=== PATIENT | female | born 1995 | race Two or more races ===

== ENCOUNTER 2024-02-17 23:48 | Observation (INO) | payer MEDICAID, SELFPAY ==
[2024-02-17 23:58] VITALS: BP 116/63; PULSE 85
[2024-02-18 00:05] VITALS: BMI 32.5
--- NOTE | 2024-02-18 00:51 | PC.NURSE ---
It's not quite time for your baby yet... Written and verbal discharge instructions given regarding Ursodial, labor precautions, kick count, increase hydration, healthy diet, come back to labor and delivery if your water bag breaks, you have contractions that are more than 6 in one hour, bleeding, if you are not feeling your baby move a normal amount of movement which are 10 movements in 2 hours. Stay hydrated and fuel your body. syrup blender your Ursodial in the morning. You are to take one capsule twice per day for your itching. There are two refills. You are to follow up in Dr Davidson's office on Thursday. Come any time you feel it is necessary.
== END 2024-02-18 00:46 | disposition home or self-care (01) ==
PROVIDERS: Admitting Provider Specialist; Visit Provider Specialist
DX: O47.03 False labor before 37 completed weeks of gestation, third trimester (principal); O99.713 Diseases of the skin and subcutaneous tissue complicating pregnancy, third trimester; L29.9 Pruritus, unspecified; Z3A.34 34 weeks gestation of pregnancy
CPT/HCPCS: 59899

== ENCOUNTER 2024-02-24 19:29 | Observation (INO) | payer MEDICAID, SELFPAY ==
[2024-02-24 19:44] VITALS: BMI 32.8
== END 2024-02-24 20:13 | disposition home or self-care (01) ==
PROVIDERS: Admitting Provider Specialist; Visit Provider Specialist
DX: O26.893 Other specified pregnancy related conditions, third trimester (principal); R10.9 Unspecified abdominal pain; Z3A.35 35 weeks gestation of pregnancy
CPT/HCPCS: 59899

== ENCOUNTER 2024-03-13 21:39 | Observation (INO) | payer MEDICAID, SELFPAY ==
[2024-03-13] VITALS (15 sets, daily range): BP systolic 122; BP diastolic 71; PULSE 71–87; O2SAT 96–98; BMI 34.9
== END 2024-03-13 23:10 | disposition home or self-care (01) ==
PROVIDERS: Admitting Provider Specialist; PCP Nurse Practitioner Family; Visit Provider Specialist
DX: O26.893 Other specified pregnancy related conditions, third trimester (principal); R10.2 Pelvic and perineal pain; Z3A.38 38 weeks gestation of pregnancy
CPT/HCPCS: 59025; 59899; G0378

== ENCOUNTER 2024-03-21 04:31 | Inpatient (IN) | payer MEDICAID, SELFPAY ==
--- NOTE | 2024-03-18 07:28 | ESHP_ITS ---
RE: KENDRA POTTER : 1995 DATE OF ADMISSION: 03/21/2024 HISTORY OF PRESENT ILLNESS: This is a 28-year-old G3, P1-0-1-1 with a due date of 03/26/2024 with intrauterine at 39 weeks and 2 days who presents for repeat delivery. She has occasional contractions. She denies any leaking or bleeding. She reports normal movement. She has had nausea and vomiting and loose stools but no fever. ALLERGIES: AMOXICILLIN. MEDICATIONS: 1. multivitamin 1 tablet p.o. daily. 2. Ferrous sulfate 325 mg 1 tablet p.o. daily. 3. Omeprazole 40 mg 1 tablet p.o. daily. PAST MEDICAL HISTORY: Iron deficiency anemia, gastroesophageal reflux disease, migraine headaches, dermoid cyst of right ovary, appendicitis, cholestasis of in 2018. FAMILY HISTORY: Diabetes. OBSTETRIC HISTORY: 2017, 37 weeks delivery, 6 pounds 6 ounce male, complicated by cholestasis. 05/2023, 5 weeks spontaneous AB, no D and C. PAST SURGICAL HISTORY: delivery in 2017, appendectomy, right ovarian cystectomy. REVIEW OF SYSTEMS: She denies any headache, change in vision or right upper quadrant pain. She denies any chest pain, palpitations, shortness of breath or lower extremity pain. PHYSICAL EXAMINATION: VITAL SIGNS: Blood pressure is 110/70, heart rate 88, respirations 18, temperature 98.6, weight 194 pounds. HEENT: Oropharynx and sclerae are clear. LUNGS: Clear to auscultation bilaterally. HEART: Regular rate and rhythm. ABDOMEN: Old Pfannenstiel scar noted. EXTREMITIES: Nontender. SKIN: No gross rashes or lesions. NEUROLOGIC: No focal deficit. ASSESSMENT: Intrauterine at 39 weeks and 2 days. Previous delivery, elects repeat delivery. Gastroenteritis. PLAN: Repeat delivery. Informed consent was obtained. The patient was made aware of the risks, complications, alternatives, and benefits of the proposed procedure and she agrees. DT: 06:50:42 TT: 07:27:00 Ref: [id number] - TID: [id number] MTDD
[2024-03-18 11:29] LABS: Basophils % (Auto) 0 % (0-2.5); Eosinophils % (Auto) 0 % (0-10); Hematocrit 32.7 % (36.0-46.0); Hemoglobin 10.4 g/dL (12.0-16.0); Immature Granulocytes % (Auto) 0 % (0-0); Immature Granulocytes Auto 0.03 Thou/mm3 (0.00-0.00); Lymphocytes # (Auto) 1.5 Thou/mm3 (1.0-4.8); Lymphocytes % (Auto) 20 % (10-50); Mean Corpuscular HGB Conc 31.8 g/dl (31.0-37.0); Mean Corpuscular Hemoglobin 26.9 pg (25.0-35.0); Mean Corpuscular Volume 85 fL (80-100); Monocytes # (Auto) 0.6 Thou/mm3 (0.0-0.8); Monocytes % (Auto) 8 % (0-12); Neutrophils # (Auto) 5.4 Thou/mm3 (1.8-7.7); Neutrophils % (Auto) 71 % (37-80); Nucleated Red Blood Cell % 0 /100 WBC (0); Platelet Count 255 Thou/mm3 (140-440); RDW Standard Deviation 44.3 fL (36.4-46.3); Red Blood Count 3.86 Miln/mm3 (4.00-5.20); White Blood Count 7.6 Thou/mm3 (3.6-11.0)
[2024-03-18 11:39] LABS: INR 0.9 (0.9-1.3); Partial Thromboplastin Time 26.5 Seconds (22.0-36.0); Prothrombin Time 10.3 Seconds (9.0-12.2)
[2024-03-18 11:46] LABS: Alanine Aminotransferase 18 U/L (10-49); Albumin/Globulin Ratio 1.3 (1.2-2.2); Alkaline Phosphatase 167 U/L (46-116); Anion Gap 9 (7-16); Aspartate Amino Transferase 16 U/L (0-34); BUN/Creatinine Ratio 10 Ratio (12-20); Bilirubin,Total 0.4 mg/dL (0.3-1.2); Blood Urea Nitrogen 5 mg/dL (9-23); Calcium 8.8 mg/dL (8.3-10.6); Calcium (Corrected) 8.8 mg/dL (8.5-10.1); Carbon Dioxide 22.7 mMol/L (20.0-31.0); Chloride 104 mMol/L (98-107); Creatinine (Component) 0.5 mg/dL (0.6-1.3); Glucose 75 mg/dL (74-106); Osmolality,Calculated 268 (275-295); Potassium 3.5 mMol/L (3.4-5.1); Sodium 136 mMol/L (136-145); eGFR > 60 See Note
[2024-03-18 12:05] LABS: Syphilis Nonreactive (Nonreactive)
[2024-03-21] VITALS (15 sets, daily range): BP systolic 106–141; BP diastolic 53–79; PULSE 50–96; RESP 12–98; TEMP 36.6–37.1; O2SAT 97–100; BMI 34.2
[2024-03-21] MEDS: ONDANSETRON INJ 2 MG/ML INJ 2 ML 4 MG IV (05:15)
[2024-03-21] MEDS: SODIUM CHLORIDE 0.9% 1000 ML 1,000 ML 999 ML IV (05:16)
[2024-03-21 06:16] LABS: Basophils % (Auto) 0 % (0-2.5); Eosinophils # (Auto) 0.1 Thou/mm3 (0.0-0.5); Eosinophils % (Auto) 1 % (0-10); Hemoglobin 10.3 g/dL (12.0-16.0); Immature Granulocytes % (Auto) 1 % (0-0); Immature Granulocytes Auto 0.05 Thou/mm3 (0.00-0.00); Lymphocytes # (Auto) 2.2 Thou/mm3 (1.0-4.8); Lymphocytes % (Auto) 22 % (10-50); Mean Corpuscular HGB Conc 32.2 g/dl (31.0-37.0); Mean Corpuscular Hemoglobin 27.1 pg (25.0-35.0); Mean Corpuscular Volume 84 fL (80-100); Monocytes % (Auto) 10 % (0-12); Neutrophils # (Auto) 6.8 Thou/mm3 (1.8-7.7); Neutrophils % (Auto) 68 % (37-80); Nucleated Red Blood Cell % 0 /100 WBC (0); Platelet Count 267 Thou/mm3 (140-440); RDW Standard Deviation 44.7 fL (36.4-46.3); White Blood Count 10.1 Thou/mm3 (3.6-11.0)
[2024-03-21 06:21] LABS: Alanine Aminotransferase 17 U/L (10-49); Albumin, Serum 3.8 gm/dL (3.5-5.0); Albumin/Globulin Ratio 1.3 (1.2-2.2); Alkaline Phosphatase 158 U/L (46-116); Anion Gap 10 (7-16); Aspartate Amino Transferase 23 U/L (0-34); BUN/Creatinine Ratio 16 Ratio (12-20); Bilirubin,Total 0.3 mg/dL (0.3-1.2); Blood Urea Nitrogen 8 mg/dL (9-23); Calcium (Corrected) 9.2 mg/dL (8.5-10.1); Carbon Dioxide 23.1 mMol/L (20.0-31.0); Chloride 106 mMol/L (98-107); Creatinine (Component) 0.5 mg/dL (0.6-1.3); Estimated Creatinine Clearance 235.6 mL/min (>60); Globulin 2.9 gm/dL (2.3-3.5); Glucose 90 mg/dL (74-106); Osmolality,Calculated 275 (275-295); Potassium 3.8 mMol/L (3.4-5.1); Sodium 139 mMol/L (136-145); Total Protein 6.7 gm/dL (5.7-8.2); eGFR > 60 See Note
[2024-03-21 06:24] LABS: INR 0.9 (0.9-1.3); Partial Thromboplastin Time 25.9 Seconds (22.0-36.0); Prothrombin Time 10.3 Seconds (9.0-12.2)
[2024-03-21 06:39] LABS: Syphilis Nonreactive (Nonreactive)
[2024-03-21] MEDS: ceFAZolin/D5W 2 GM IV 2 GM/100 ML BAG IV (12:15)
[2024-03-21] MEDS: FAMOTIDINE INJ 10 MG/ML VIAL 2 ML 20 MG IV (12:15)
[2024-03-21] MEDS: METOCLOPRAMIDE INJ 5 MG/ML VIAL 2 ML 10 MG IVP (12:15)
[2024-03-21] MEDS: RINGERS LACTATED 1000 ML 1,000 ML 100 ML IV (12:27)
[2024-03-21] MEDS: MISOPROSTOL 200 mCg TABLET 800 MCG PR (13:39)
--- NOTE | 2024-03-21 13:42 | ESDS_ITS ---
DS: Providers Provider Date of admission: 03/21/24 05:51 Primary care physician: Paresh Soria MD Admitting Provider: Paresh Soria MD Attending Provider on Admission: Onesimo Davidson MD Attending Provider on DC: Onesimo Davidson MD Discharging Provider: Onesimo Davidson MD DS: Diagnosis Discharge Diagnosis (1) Dermoid cyst of right ovary: Status: Acute (2) Pelvic peritoneal adhesions, female: Status: Acute (3) Uterine atony: Status: Acute (4) delivery delivered: Status: Acute Problem List Completed Was Problem List Reviewed/Reconciled?: Yes Summary/Hosp Course Time Spent with Patient Time attestation: Total time spent providing and/or coordinating discharge services: Exam Vital Signs Temp Pulse Resp BP 98.7 F 68 19 117/72 03/21/24 04:39 03/21/24 08:19 03/21/24 04:39 03/21/24 08:19 Discharge Plan Plan Patient Disposition: HOME (Self Care) Patient condition on transfer: Stable Prescriptions/Referrals Prescriptions/Med Rec: New ibuprofen 600 mg tablet 600 mg PO Q6H PRN (Reason: pain) Qty: 30 0RF Continued Vitamin 27 mg iron- 800 mcg tablet 1 tab PO QDAY Patient Comments: TAKE 1 TABLET BY MOUTH EVERY DAY Discontinued ursodiol 300 mg Capsule 300 mg PO BID 90 Days Qty: 60 2RF Rx Instructions: Take capsule twice per day by mouth Referrals: Paresh Soria MD [Physician] - Patient/Caregiver Discharge Instructions Discharge Activity: activity as tolerated Other Discharge Activity Instructions:: Follow up [address] Davidson Education Materials: How to Breastfeed, Breast Care After , After a , C Section Dc Print Language: Turkmen Activity Restrictions/Additional Instructions: continue vitamin, office visit in one week Stand Alone Forms: Kim Award Info., Patient Portal Info Letter Discharge Order Discharge Orders: Discharge (Routine); Ordered 03/24/24 Ordered By: Onesimo Davidson Planned Discharge Date 03/24/24
--- NOTE | 2024-03-21 13:43 | PD.LDDELS ---
Data ([place]) Data Hx Section: Yes : 3 Para: 1 Term: 1 : 0 : 1 Delivery Data ([facility]) Labor Data ROM Date: 03/21/24 ROM Time: 12:59 Rupture Type: AROM Amniotic Fluid: Clear Delivery Data EDC: 03/26/24 EDC calculated by:: LMP/early US confirmation Labor Onset Stage 1 Date: 03/21/24 Labor Onset Stage 1 Time: 12:59 Labor Onset Stage 2 Date: 03/21/24 Labor Onset Stage 2 Time: 12:59 Delivery Date: 03/21/24 Delivery Time: 13:00 Gestational age (weeks): 39 Gestational age (days): 2 Placenta Delivery Date: 03/21/24 Placenta Delivery Time: 13:00 Delivered by: Onesimo Davidson Delivery nurse: Teresa Marc Other staff at delivery: Nursery Nurse Other staff at delivery: NINA Other staff at delivery: Molly Ngo Other staff at delivery: James Serrato Delivery Method Delivery: Delivery Type: Repeat Presentation: Vertex Position: OA Anesthesia Type Primary Anesthesia: Spinal Placenta Placenta Delivery: Manual Placenta Cultures Obtained: No Placenta Sent for Examination: No Cord Sample: Cord Blood Obtained EBL Estimated blood loss (ml): 800 Additional Procedures Lysis of adhesions Complications Complications: Uterine atony Data ([facility]) Data Gender: Female Infant Weight Grams: 3990 1 Minute Total: 9 5 Minute Total: 9
[2024-03-21] MEDS: OXYTOCIN in NS 20 units 20 UNIT/1,000 ML BAG 125 UNIT IV ×2 (14:15→21:50)
[2024-03-21] MEDS: KETOROLAC INJ 30 MG/ML VIAL IVP (15:54)
[2024-03-21] MEDS: HYDROcodone/APAP 5/325 TABLET 1 TAB PO ×2 (18:08→21:19)
[2024-03-21 20:47] LABS: Basophils % (Auto) 0 % (0-2.5); Eosinophils % (Auto) 0 % (0-10); Hemoglobin 9.1 g/dL (12.0-16.0); Immature Granulocytes % (Auto) 0 % (0-0); Immature Granulocytes Auto 0.05 Thou/mm3 (0.00-0.00); Lymphocytes # (Auto) 2.2 Thou/mm3 (1.0-4.8); Lymphocytes % (Auto) 16 % (10-50); Mean Corpuscular HGB Conc 32.5 g/dl (31.0-37.0); Mean Corpuscular Hemoglobin 27.4 pg (25.0-35.0); Mean Corpuscular Volume 84 fL (80-100); Monocytes # (Auto) 1.1 Thou/mm3 (0.0-0.8); Monocytes % (Auto) 8 % (0-12); Neutrophils % (Auto) 75 % (37-80); Nucleated Red Blood Cell % 0 /100 WBC (0); Platelet Count 210 Thou/mm3 (140-440); RDW Standard Deviation 44.7 fL (36.4-46.3); Red Blood Count 3.32 Miln/mm3 (4.00-5.20); White Blood Count 13.4 Thou/mm3 (3.6-11.0)
[2024-03-22 01:45] VITALS: BP 98/61; PULSE 86; RESP 20; TEMP 36.8; O2SAT 97
[2024-03-22] MEDS: KETOROLAC INJ 30 MG/ML VIAL IVP (01:45)
[2024-03-22 05:45] VITALS: BP 112/72; PULSE 77; RESP 18; TEMP 36.7; O2SAT 97
[2024-03-22] MEDS: HYDROcodone/APAP 5/325 TABLET 1 TAB PO ×4 (06:08→21:52)
[2024-03-22 08:30] VITALS: BP 110/70; PULSE 82; RESP 16; TEMP 36.7; O2SAT 97
--- NOTE | 2024-03-22 11:36 | ESPR_ITS ---
RE: KENDRA POTTER : 1995 DATE OF SERVICE: 03/22/2024 SUBJECTIVE: Postop day #1, the patient denies any problems or complaints. She is voiding. She is ambulating. She tolerated diet. She is passing flatus. She denies any excessive vaginal bleeding. She denies any dizziness or lightheadedness. She denies any chest pain, palpitations, shortness of breath or lower extremity pain. OBJECTIVE: Vital Signs: Blood pressure 112/72, heart rate 77, respirations 18, temperature 90.1, pulse oximetry 97% on room air. Lungs: Clear to auscultation bilaterally. Heart: Regular rate and rhythm. Abdomen: Fundus is firm. Dressing dry and intact. Extremities: Nontender. LABORATORY DATA: Hemoglobin pre-delivery is 12.3, post-delivery is 9.1. ASSESSMENT: Postop day #1, status post delivery and lysis of adhesions and right ovarian cystectomy. PLAN: Remove dressing, DC IV, encourage ambulation, counseling, possible discharge home tomorrow. DT: 08:39:18 TT: 11:34:00 Ref: [id number] - TID: [id number]
[2024-03-22] MEDS: SIMETHICONE 80 MG CHEW PO ×2 (11:49→16:54)
--- NOTE | 2024-03-22 12:00 | PC.LAC ---
Dropped in several times this am to see how things are going with , mom states she has been having challenges and would like some support with . At that time baby was having hearing screen done, also given bottle at this time, baby took 30 ml's of formula. Several attempts to help mom with both times baby still sleeping. Explained to parents the difference between formula and breast milk (colostrum) in day one of babys life. Explained that over full belly will cause them to sleep longer. Parents understood.
[2024-03-22 13:30] VITALS: BP 113/71; PULSE 96; RESP 16; TEMP 37; O2SAT 96
[2024-03-22 20:00] VITALS: BP 118/77; PULSE 97; RESP 18; TEMP 36.6; O2SAT 99
[2024-03-23 00:45] VITALS: BP 119/78; PULSE 91; RESP 18; TEMP 36.9; O2SAT 97
[2024-03-23] MEDS: HYDROcodone/APAP 5/325 TABLET 2 TAB PO ×2 (01:17→07:23)
[2024-03-23 05:03] VITALS: BP 114/75; PULSE 83; RESP 18; TEMP 36.8; O2SAT 98
--- NOTE | 2024-03-23 05:15 | ESPR_ITS ---
RE: KENDRA POTTER : 1995 DATE OF SERVICE: 03/23/2024 S: Postop day #2, the patient denies any prior problems. She is voiding. She is ambulating. She is tolerating regular diet. She is passing flatus. She denies any excessive vaginal bleeding. She denies any dizziness or lightheadedness. She denies any chest pain, palpitations, shortness of breath or lower extremity pain. O: Vital Signs: Blood pressure 119/78, heart rate 91, respirations 18, temperature is 98.4, pulse oximetry is 97% on room air. Lungs: Clear to auscultation bilaterally. Heart: Regular rate and rhythm. Abdomen: Incision clear and intact. Fundus is firm. Extremities: Nontender. ASSESSMENT: Postop day #2 status post delivery. PLAN: Discharge home. Discharge instructions given. Follow up in the office in one week. DT: 04:06:06 TT: 05:13:00 Ref: [id number] - TID: [id number]
[2024-03-23 07:40] VITALS: BP 118/80; PULSE 80; RESP 18; TEMP 36.7; O2SAT 98
--- NOTE | 2024-03-23 09:35 | PD.LDPPPRG ---
Subjective Subjective Interval history: Dizziness after taking two 5 mg Ephraim at 0717. No problem with dizziness or lightheadness before. Exam Vital Signs Temp Pulse Resp BP Pulse Ox O2 Del Method 98.0 F 80 18 118/80 98 Room Air 03/23/24 07:40 03/23/24 07:40 03/23/24 07:40 03/23/24 07:40 03/23/24 07:40 03/23/24 07:40 Objective Labs 03/21/24 20:09 03/21/24 05:05 Assessment & Plan Problem List (1) Dermoid cyst of right ovary: Status: Acute (2) Pelvic peritoneal adhesions, female: Status: Acute (3) Uterine atony: Status: Acute (4) delivery delivered: Status: Acute Assessment Comment Assessment comment: Dizziness due to Ephraim 10mg with normal vital signs and exam Plan Comment Plan Comment: Discharge home Advised to take Ibuprofen for pain and if no relief try just one Ephraim 5 mg and no sooner than every 6 hours. Discharge Instructions given. Follow up in office tomorrow if any problems or concerns otherwise follow up office 1 week.
[2024-03-23 12:00] VITALS: BP 129/80; PULSE 89; RESP 19; TEMP 36.7; O2SAT 98
[2024-03-23 12:43] LABS: Basophils % (Auto) 0 % (0-2.5); Eosinophils # (Auto) 0.2 Thou/mm3 (0.0-0.5); Eosinophils % (Auto) 2 % (0-10); Hematocrit 26.6 % (36.0-46.0); Immature Granulocytes % (Auto) 1 % (0-0); Immature Granulocytes Auto 0.06 Thou/mm3 (0.00-0.00); Lymphocytes # (Auto) 1.9 Thou/mm3 (1.0-4.8); Lymphocytes % (Auto) 17 % (10-50); Mean Corpuscular HGB Conc 32.3 g/dl (31.0-37.0); Mean Corpuscular Hemoglobin 26.9 pg (25.0-35.0); Mean Corpuscular Volume 83 fL (80-100); Monocytes # (Auto) 1.1 Thou/mm3 (0.0-0.8); Monocytes % (Auto) 10 % (0-12); Neutrophils % (Auto) 71 % (37-80); Nucleated Red Blood Cell % 0 /100 WBC (0); Platelet Count 238 Thou/mm3 (140-440); RDW Standard Deviation 44.8 fL (36.4-46.3); White Blood Count 11.2 Thou/mm3 (3.6-11.0)
[2024-03-23 12:48] LABS: Hemoglobin 8.6 g/dL (12.0-16.0)
--- NOTE | 2024-03-23 12:53 | ESPR_ITS ---
Subjective Subjective Interval history: Pt was set to be discharged but said she doesn't feel comfortable going home due to dizziness. Hb 8.6 . Exam Vital Signs Temp Pulse Resp BP Pulse Ox O2 Del Method 98.0 F 89 19 129/80 98 Room Air 03/23/24 12:00 03/23/24 12:00 03/23/24 12:00 03/23/24 12:00 03/23/24 12:00 03/23/24 12:00 Objective Labs 03/23/24 12:10 03/21/24 05:05 Labs: Laboratory Results - last 24 hr 03/23/24 12:10 WBC 11.2 H RBC 3.20 L Hgb 8.6 L Hct 26.6 L MCV 83 MCH 26.9 MCHC 32.3 RDW Std Deviation 44.8 Plt Count 238 Neut % (Auto) 71 Lymph % (Auto) 17 [place] % (Auto) 10 Eos % (Auto) 2 Baso % (Auto) 0 Neut # (Auto) 8.0 H Lymph # (Auto) 1.9 [place] # (Auto) 1.1 H Eos # (Auto) 0.2 Baso # (Auto) 0.0 Immature Gran # (Auto) 0.06 H Absolute Nucleated RBC 0.00 Immature Gran % 1 H Nucleated RBC % 0 Assessment & Plan Problem List (1) Dermoid cyst of right ovary: Status: Acute (2) Pelvic peritoneal adhesions, female: Status: Acute (3) Uterine atony: Status: Acute (4) delivery delivered: Status: Acute Assessment and plan: Dizziness postoperatively Inpatient monitoring for another 24 hour. Time Spent With Patient Time: Total time spent is greater than 50% in coordination of care (as documented) at patient's floor/unit and/or counseling patient:
[2024-03-23] MEDS: IBUPROFEN TAB 400 MG TABLET 800 MG PO ×2 (14:28→22:30)
[2024-03-23] MEDS: ACETAMINOPHEN 325 MG TABLET 650 MG PO ×2 (16:43→23:54)
[2024-03-23 20:00] VITALS: BP 113/72; PULSE 77; RESP 18; TEMP 37; O2SAT 98
[2024-03-24 03:41] VITALS: BP 100/61; PULSE 74; RESP 18; TEMP 36.5; O2SAT 96
[2024-03-24] MEDS: IBUPROFEN TAB 400 MG TABLET 800 MG PO (06:31)
--- NOTE | 2024-03-24 07:21 | ESPR_ITS ---
RE: KENDRA POTTER : 1995 DATE OF SERVICE: 03/24/2024 SUBJECTIVE: Postoperative day #3, the patient denies any problem or complaint. The patient reports no longer having the episodes of dizziness that she experienced yesterday. OBJECTIVE: Vital Signs: Blood pressure 100/61, heart rate 74, respirations 18, temperature is 97.7, pulse ox is 96% on room air. Lungs: Clear to auscultation bilaterally. Heart: Regular rate and rhythm. Abdomen: Fundus is firm. Incision is clear and intact. : Lochia is scant. Extremities: Nontender. LABORATORY DATA: Hemoglobin is 8.6. ASSESSMENT: 1. Postop day #3 status post delivery. 2. Dizziness, episodic due to anemia and [place]. PLAN: The patient was advised on how to take the [place] and encouraged to take ibuprofen instead. Discharge instructions were given. Followup in the office in 1 week. DT: 06:07:15 TT: 07:19:00 Ref: [id number] - TID: [id number]
[2024-03-24 08:05] VITALS: BP 124/78; PULSE 78; RESP 17; TEMP 36.6; O2SAT 96
[2024-03-24] MEDS: ACETAMINOPHEN 325 MG TABLET 650 MG PO (08:09)
--- NOTE | 2024-03-25 10:00 | ESOP_ITS ---
RE: KENDRA POTTER : 1995 DATE OF OPERATION: 03/21/2024 PREOPERATIVE DIAGNOSES: 1. Intrauterine at 39 weeks and 2 days. 2. Previous delivery elects to repeat delivery. POSTOPERATIVE DIAGNOSES: 1. Intrauterine at 39 weeks and 2 days. 2. Previous delivery elects to repeat delivery. 3. Pelvic adhesions. 4. Right ovarian cyst. 5. Right ovarian remnant. PROCEDURE PERFORMED: Repeat low transverse section with Pfannenstiel skin incision, lysis of adhesions, and right ovarian cystectomy. SURGEON: Onesimo Davidson DO CHEMICAL PROCESSING EQUIPMENT REPAIRER: LUCINDA Mendoza ANESTHESIA: Spinal. ANESTHESIOLOGIST: Amador Serrato CRNA ESTIMATED BLOOD LOSS: 800 mL COMPLICATIONS: Uterine atony. FINDINGS: A live female infant in cephalic presentation. Clear amniotic fluid. Apgars see RN notes. Placenta removed completely intact. Uterus atonic but responded to uterotonics. Filmy adhesions of both fallopian tubes to the broad ligament, a 5 x 5 mm right ovarian cyst, right ovary remnant. Left ovary appeared grossly within normal limits. DESCRIPTION OF PROCEDURE: After proper informed consent was obtained and the patient was made aware of the risks, complications, alternatives, and benefits of the proposed procedure, she was taken to the operating room where she underwent induction of spinal anesthesia. She was placed in the dorsal supine position with leftward tilt. She was prepped and draped in the usual sterile fashion. A time-out was performed. A Pfannenstiel skin incision was made with scalpel, carried through to the underlying layer of fascia with the Bovie. The fascia was nicked in the midline, the incision extended bilaterally with the Bovie. The inferior aspect of the fascia incision was grasped, Laura clamp elevated. The underlying rectus vessel dissected off with the Bovie. The rectus vessels in the midline and the peritoneum identified between 2 Steff clamps it was entered sharply with the Metzenbaum scissors. The incision was extended superiorly and inferiorly with good visualization of the bladder. Bladder blade was then inserted. The vesicouterine peritoneum was incised transversely and the bladder flap created digitally. The bladder blades were reinserted, low uterine segment incised in transverse fashion with scalpel. The incision was extended bilaterally digitally. The infant's head delivered. The mouth and nose were suctioned with bulb suction. Shoulder and body delivered atraumatically. The cord was clamped and cut, the infant was handed off to the waiting pediatric staff. Cord blood and gases were sent. The placenta was then removed manually. The uterus was exteriorized and cleared of all clots and debris. The uterine incision was repaired in a #1-0 chromic catgut suture in a running locking fashion, a secondary same suture was used to imbricate the first layer and obtained excellent hemostasis. The vesicouterine peritoneum was closed with 2-0 chromic catgut suture in running fashion. The adhesions on both adnexa were lysed and the right ovarian cystectomy was performed and hemostasis was achieved. The left ovary appeared grossly within normal limits. The uterus was returned to the abdomen. The gutters were cleared of all clots and debris. The uterus initially was atonic but responded to uterotonics and the fundus was firm. When the peritoneum was closed, the peritoneum was closed with 0 chromic catgut suture in running fashion. The muscle was closed with 0-chromic suture in running fashion. The fascia was closed with 0 Vicryl beginning at each angle, ending in center running fashion. The subcutaneous tissue was irrigated with normal insulin solution and found to be hemostatic, closed with 2-0 chromic catgut suture in running fashion. The skin was closed with 4-0 Monocryl and Dermabond. Perineal dressing was applied. A sterile pressure dressing was applied. She tolerated the procedure well. Counts were correct. I discussed with the patient the nature of her condition and intraoperative findings, expectation for recovery. All questions answered. DT: 13:38:08 TT: 16:26:00 Ref: [id number] - TID: [id number]
== END 2024-03-24 11:08 | disposition home or self-care (01) | DRG 540 ==
LOC: S4SX 12:18 → S4NX 12:53
PROVIDERS: Admitting Provider Obstetrics & Gynecology; PCP Family Medicine; Visit Provider Specialist
PROC: 10D00Z1 Extraction of Products of Conception, Low, Open Approach (ICD-10-PCS; CPT 59514; principal; 2024-03-21 12:30)
DX: O34.211 Maternal care for low transverse scar from previous cesarean delivery (principal); O62.2 Other uterine inertia; Z37.0 Single live birth; O34.83 Maternal care for other abnormalities of pelvic organs, third trimester; D27.0 Benign neoplasm of right ovary; O99.62 Diseases of the digestive system complicating childbirth; K52.9 Noninfective gastroenteritis and colitis, unspecified; O90.81 Anemia of the puerperium; O90.89 Other complications of the puerperium, not elsewhere classified; R42 Dizziness and giddiness; T40.2X5A Adverse effect of other opioids, initial encounter; Y92.230 Patient room in hospital as the place of occurrence of the external cause
CPT/HCPCS: 36415; 80053; 85025; 85610; 85730; 86780; 86850; 86900; 86901; A4649; J0689; J1885; J2210; J2274; J2405; J2590; J2765; J3010; J3490; J7030; J7120; S0191; A9270; J0690; J2270

== ENCOUNTER 2024-03-27 22:52 | Emergency (ER) | payer MEDICAID, SELFPAY ==
[2024-03-27 22:53] VITALS: BMI 32.2
[2024-03-27 23:23] VITALS: BP 118/77; PULSE 89; RESP 18; TEMP 37.1; O2SAT 95
--- NOTE | 2024-03-27 23:35 | EDRME_ITS ---
Rapid Medical Screening Exam [facility] Arrival date/time: 03/27/24 22:52 This is a 28-year-old female that comes in with complaints of abdominal pain. Patient states that she just had a about a week ago. Patient states everything was okay after the . Patient's incision is looking good. Patient denies fever, nausea, vomiting, diarrhea. Patient denies any sick contacts. Patient denies any respiratory symptoms. Patient states she did have an episode of shortness of breath yesterday but it resolved on its own. Patient denies past medical history I have greeted and performed a focused initial assessment of this patient. Initial appropriate labs ordered at this time. A comprehensive ED assessment and evaluation of the patient and analysis of all test and completion of medical decision making process will be conducted by additional ED provider. Chief Complaint: Abdominal Pain Time Seen by Provider: 03/27/24 23:11 Vital signs: Vital Signs Temperature 98.7 F 03/27/24 23:23 Pulse Rate 89 03/27/24 23:23 Respiratory Rate 18 03/27/24 23:23 Blood Pressure 118/77 03/27/24 23:23 Pulse Oximetry (%) 95 03/27/24 23:23 Oxygen Delivery Method Room Air 03/27/24 23:23
[2024-03-27 23:54] LABS: Basophils % (Auto) 0 % (0-2.5); Eosinophils # (Auto) 0.3 Thou/mm3 (0.0-0.5); Eosinophils % (Auto) 3 % (0-10); Hematocrit 30.2 % (36.0-46.0); Hemoglobin 9.7 g/dL (12.0-16.0); Immature Granulocytes % (Auto) 1 % (0-0); Immature Granulocytes Auto 0.07 Thou/mm3 (0.00-0.00); Lymphocytes % (Auto) 20 % (10-50); Mean Corpuscular HGB Conc 32.1 g/dl (31.0-37.0); Mean Corpuscular Hemoglobin 26.6 pg (25.0-35.0); Mean Corpuscular Volume 83 fL (80-100); Monocytes # (Auto) 1.1 Thou/mm3 (0.0-0.8); Monocytes % (Auto) 10 % (0-12); Neutrophils # (Auto) 6.8 Thou/mm3 (1.8-7.7); Neutrophils % (Auto) 66 % (37-80); Nucleated Red Blood Cell % 0 /100 WBC (0); Platelet Count 368 Thou/mm3 (140-440); RDW Standard Deviation 45.4 fL (36.4-46.3); Red Blood Count 3.64 Miln/mm3 (4.00-5.20); White Blood Count 10.3 Thou/mm3 (3.6-11.0)
--- NOTE | 2024-03-28 | XR_ITS ---
Examination: Abdomen sonogram, Limited Date and time of exam: March 28, 2024 0007 hours INDICATIONS: March 21, 2024 with abdominal pain beginning 2 days ago Technique: Real-time sheppard scale transabdominal sonographic images of the upper abdomen obtained. Findings: Gallbladder sludge Negative for gallstones Normal gallbladder wall 0.2 cm Normal common bile duct 0.2 cm Pancreatic head 3.1 cm Liver 16.1 cm fatty infiltration lobular contour no focal liver lesions Normal hepatopedal portal venous flow Patent IVC IMPRESSION: Minimal gallbladder sludge Negative for cholelithiasis, negative for cholecystitis Mild hepatomegaly fatty liver
[2024-03-28 00:05] LABS: Collection Type, Urine Voided
[2024-03-28 00:15] LABS: Alanine Aminotransferase 33 U/L (10-49); Albumin/Globulin Ratio 1.3 (1.2-2.2); Alkaline Phosphatase 108 U/L (46-116); Anion Gap 10 (7-16); Aspartate Amino Transferase 23 U/L (0-34); BUN/Creatinine Ratio 23 Ratio (12-20); Bilirubin,Total 0.3 mg/dL (0.3-1.2); Blood Urea Nitrogen 14 mg/dL (9-23); Calcium 8.9 mg/dL (8.3-10.6); Calcium (Corrected) 8.9 mg/dL (8.5-10.1); Carbon Dioxide 23.2 mMol/L (20.0-31.0); Chloride 107 mMol/L (98-107); Creatinine (Component) 0.6 mg/dL (0.6-1.3); Estimated Creatinine Clearance 144.6 mL/min (>60); Globulin 3.2 gm/dL (2.3-3.5); Glucose 96 mg/dL (74-106); Lipase 34 U/L (12-53); Osmolality,Calculated 279 (275-295); Potassium 3.8 mMol/L (3.4-5.1); Sodium 140 mMol/L (136-145); Total Protein 7.2 gm/dL (5.7-8.2); eGFR > 60 See Note
[2024-03-28 00:17] LABS: Bilirubin,Urine Negative (Negative); Blood,Urine Trace (Negative); Clarity,Urine Clear (Clear/Hazy); Color,Urine Lt-Yellow (Lt Yel-Yel); Culture Indicated,Urine Not Indicated; Glucose, Urine Negative (Negative); Ketones,Urine Negative (Negative); Leukocyte Esterase,Urine Positive (Negative); Nitrite,Urine Negative (Negative); PH,Urine 6.5 (5.0-7.0); Protein,Urine Trace (Neg - Trace); RBC,Urine 3 /hpf (0-3); Specific Gravity,Urine 1.024 (1.001-1.035); Squamous Epithelial Cell,Urine 4 /hpf (0-5); Urobilinogen,Urine Negative mg/dL (0.0-1.0); WBC,Urine 4 /hpf (0-5)
--- NOTE | 2024-03-28 00:39 | PD.EDABDPN ---
ED Abdominal Pain RME/HPI General Chief Complaint: Abdominal Pain Stated complaint: C section on thursday now has abd pain Time seen by provider: 03/27/24 23:11 Arrival date/time: 03/27/24 22:52 Source: patient and family Mode of arrival: ambulatory Limitations: no limitations RME / HPI RME / HPI narrative: 03/27/24 22:52 This is a 28-year-old female that comes in with complaints of abdominal pain. Patient states that she just had a about a week ago. Patient states everything was okay after the . Patient's incision is looking good. Patient denies fever, nausea, vomiting, diarrhea. Patient denies any sick contacts. Patient denies any respiratory symptoms. Patient states she did have an episode of shortness of breath yesterday but it resolved on its own. Patient denies past medical history. I have greeted and performed a focused initial assessment of this patient. Initial appropriate labs ordered at this time. A comprehensive ED assessment and evaluation of the patient and analysis of all test and completion of medical decision making process will be conducted by additional ED provider. Dr. Kraus?s Main ED Evaluation: 28-year-old female with no past medical history accompanied by significant other who presents to the emergency department for evaluation of abdominal pain. Patient states she recently gave via on 03/21/24 [address] Dr. Davidson and was just released on 03/25/24. Patient states since yesterday she has had worsening pain from the incision site radiating to her epigastric region. She was taking [place] while admitted here but it made her dizzy so she was given ibuprofen instead. She reports taking ibuprofen yesterday and the pain had some improvement. She also reported feeling short of breath when she was laying flat but it resolved. Today, she comes in because the pain returned. Patient is currently . She has a follow up appointment scheduled with Dr. Davidson today, 03/28/24. Related Data Home Medications ?Medication ?Instructions ?Recorded ?Confirmed vits no.130-ferrous fum 1 tab PO QDAY 11/30/23 03/21/24 27 mg iron-folic acid 800 mcg tablet ( Vitamin) Previous Rx's ?Medication ?Instructions ?Recorded ibuprofen 600 mg tablet 600 mg PO Q6H PRN pain #30 tabs 03/23/24 Allergies Allergy/AdvReac Type Severity Reaction Status Date / Time No Known Allergies Allergy Verified 03/21/24 16:51 Review of Systems Review of Systems Systems Reviewed: All systems reviewed, normal except as documented Past Medical History Past Medical History NEUROLOGIC: Negative Seizures CARDIAC: Negative Cardiac Disorders or Congestive Heart Failure RESPIRATORY: Negative Chronic Obstructive Pulmonary Disease (COPD) or Asthma GENITOURINARY: Negative Renal Disease REPRODUCTIVE: Negative Breast Cancer ENDOCRINE: Negative Diabetes Mellitus Type 1 or Diabetes Mellitus Type 2 HEMATOLOGIC: Negative Sickle Cell Disease OTHER HISTORY: Negative Autoimmune Disease, Blood Transfusions, Blood Transfusion Reaction, Anesthesia Reactions, Clostridium Difficile or Breast Cancer Surgical History SURGICAL: Positive Section Social History SMOKING STATUS: Never smoker ED Exam Narrative Physical exam: GENERAL APPEARANCE: alert and oriented x 4, well-developed, well-nourished, no acute distress VITALS: All vitals were reviewed and the pulse ox is 95% on room air, which is normal according to my interpretation. HEENT: Normocephalic, atraumatic; pupils equal, round, reactive to light; EOMI; mucous membranes pink, moist; oropharynx clear NECK: Supple LUNGS: CTABL; no wheezes, no rales, no rhonchi HEART: Regular rate, regular rhythm; normal S1, S2; no murmurs ABDOMEN: non distended; normal BS; no guarding, no rebound; no masses, no organomegaly, no hernia. There is mild tenderness in all quadrants. There is a well-healing surgical scar from recent . No erythema. No drainage. BACK: no CVA tenderness EXTREMITIES: atraumatic; no edema NEUROLOGIC: awake; alert and oriented x4; cranial nerves II-XII grossly intact; no focal sensory or motor deficits PSYCHIATRIC: appropriate mood and affect SKIN: warm, dry, normal color; no rashes General Limitations: Present no limitations Course Quality Measures none Orders Category Date Time Status US abdomen limited Stat Exams 03/28/24 00:00 Taken CBC Stat Lab 03/27/24 23:45 Completed Comprehensive Metabolic Panel Stat Lab 03/27/24 23:45 Completed Lipase Stat Lab 03/27/24 23:45 Completed Urinalysis, C/S if Indicated Stat Lab 03/28/24 00:00 Completed Vital Signs Vital signs: Vital Signs Temperature 98.7 F 03/27/24 23:23 Pulse Rate 89 03/27/24 23:23 Respiratory Rate 18 03/27/24 23:23 Blood Pressure 118/77 03/27/24 23:23 Pulse Oximetry (%) 95 03/27/24 23:23 Oxygen Delivery Method Room Air 03/27/24 23:23 Abdominal Pain MDM MDM Narrative MDM Narrative:: Scribe Attestation: I, Crow Ramírez, am scribing for and in the presence of Dr. Kraus. Provider Notation: Although this document has been carefully reviewed, there may still be some phonetic and other typographical errors. These errors are purely grammatical due to imperfections in the software program and should not be construed in any way to compromise the substance of the patient's medical care during this visit. Patient data External records reviewed:: [facility] previous records Clinical information provided by:: patient Social determinants that could affect healthcare access:: none Patient has the following chronic illnesses:: None How is presenting disease/condition affected by chronic disease/condition?: no chronic disease Evaluation data The following diagnostics were reviewed and interpreted by me:: lab results and radiology exam(s) Lab and/or radiology exams considered but not ordered:: None Interpretation Summary: I personally reviewed, analyzed and interpreted the ultrasound results. Negative for gallstones. Medications / Prescriptions Medications or Prescriptions considered but not ordered:: None Medication administrations:: None Consultations Consultation(s) initiated? (list below): No Diagnosis Differential diagnosis abdominal pain: other (Post-operative abscess, post-operative cellulitis, seroma, post-operative pain) Most likely diagnosis given after review of the tests above:: Post-operative pain Admission Indicated Admission indicated?: not indicated Admission Request Was there a request for admission?: No Disposition Plan Disposition Plan: Discharge Discharge Attestation Discharge Attestation: The patient and all family members were given an opportunity to ask questions and understood the discharge instructions. Discharge instructions specifically effects, indications for sooner follow up or return to the emergency department, and the expected course of current diagnosis. Patient condition: Stable Discharge Plan Plan Patient Disposition: HOME (Self Care) Disposition Comment: Stable for discharge Patient condition on transfer: Stable Prescriptions/Referrals Prescriptions/Med Rec: No Action Vitamin 27 mg iron- 800 mcg tablet 1 tab PO QDAY Patient Comments: TAKE 1 TABLET BY MOUTH EVERY DAY ibuprofen 600 mg tablet 600 mg PO Q6H PRN (Reason: pain) Qty: 30 0RF Referrals: No Primary/Family,Physician [Primary Care Provider] - In 1 week Problem List Clinical Impression: Post-operative pain Patient/Caregiver Discharge Instructions Discharge Activity: activity as tolerated Education Materials: Complementary Care for Pain, Managing Post-Op Pain at Home Additional Instructions: Please keep your appointment with your voice engineer tomorrow. If you feel yourself worsening in any way or if you are not improving in the next couple of days please return to the ER and we will help you. I believe your pain is due to the operation that you had. However it is really important that you pay attention to your body and return if you get worse. All of your tests were normal here in the ER. But if you are getting worse you should come back and we will repeat the tests. Print Language: Citizen Of [place] Stand Alone Forms: Kim Award Info., Patient Portal Info Letter
[2024-03-28 00:44] VITALS: BP 120/72; PULSE 76; RESP 18; TEMP 36.7; O2SAT 99
--- NOTE | 2024-03-28 01:15 | PRELIM_ITS ---
Right upper quadrant abdominal ultrasound with doppler and wave doppler spectral analysis. March at 0007 hours Clinical history: Abdominal pain. Technique: Grayscale and color flow images of the right upper quadrant are provided. Hepatic and portal veins were also imaged with color flow imag es. Comparison: No prior study is available for comparison. Findings:The liver demonstrates increased echogenicity. No intrahepatic biliary ductal dilatation. Gallbladder sludge. No gallbladder calculus , wall thickening or pericholecystic fluid is demonstrated. The common bile duct is normal in caliber at 2.4 mm. The pancreas is unremarkable to the extent visualized. The right kidney is within normal limits.The portal vein is patent with hepatopetal flow and normal wave Doppler spectral analysis.The hepatic veins are patent.Impression:Gallbladder sludge without evidence of acute cholecystitis.Liver steatosis. Report Electronically Signed By: Chip Vieira 03/28/2024 1:14:26 AM [EST]
== END 2024-03-28 00:45 | disposition home or self-care (01) ==
PROVIDERS: Nurse Practitioner Family; Emergency Provider Emergency Medicine
DX: O90.89 Other complications of the puerperium, not elsewhere classified (principal); G89.18 Other acute postprocedural pain
CPT/HCPCS: 36415; 76705; 80053; 81001; 83690; 85025; 99284

== ENCOUNTER 2024-04-24 02:11 | Emergency (ER) | payer MEDICAID, SELFPAY ==
[2024-04-24 02:12] VITALS: BMI 30.1
--- NOTE | 2024-04-24 02:16 | EKG_ITS ---
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
[2024-04-24 02:56] VITALS: BP 119/58; PULSE 65; RESP 17; TEMP 36.8; O2SAT 98
--- NOTE | 2024-04-24 03:38 | PD.EDEXREM ---
ED Extremity Problem RME/HPI General Chief complaint: Chest Pain Stated complaint: chest pain that radiates to left arm Time Seen by Provider: 04/24/24 03:27 Arrival date/time: 04/24/24 02:11 28F with no significant PMH presents to ED with 2 days of L shoulder pain that radiates down L arm w/o fall/trauma. There is also some L arm numbness that is relieved when she moves her arm/shoulder. Patient denies URI symptoms, SOB, and leg swelling. Limitations: no limitations Related Data Home Medications ?Medication ?Instructions ?Recorded ?Confirmed vits no.130-ferrous fum 1 tab PO QDAY 11/30/23 03/21/24 27 mg iron-folic acid 800 mcg tablet ( Vitamin) Previous Rx's ?Medication ?Instructions ?Recorded ibuprofen 600 mg tablet 600 mg PO Q6H PRN pain #30 tabs 03/23/24 Allergies Allergy/AdvReac Type Severity Reaction Status Date / Time No Known Allergies Allergy Verified 03/21/24 16:51 Review of Systems Review of Systems Systems Reviewed: All systems reviewed, normal except as documented Constitutional Constitutional: Reports system reviewed and no additional complaints, except as documented, Denies fever(s) and Denies headache(s) ENT Ears, Nose, Mouth, and Throat: Denies disequilibrium and Denies headache(s) Cardiovascular Cardiovascular: Reports system reviewed and no additional complaints, except as documented, Denies chest pain and Denies dyspnea Respiratory Respiratory: Reports system reviewed and no additional complaints, except as documented, Denies cough and Denies dyspnea Gastrointestinal Gastrointestinal: Reports system reviewed and no additional complaints, except as documented, Denies abdominal pain, Denies nausea and Denies vomiting Musculoskeletal Musculoskeletal: Reports as per HPI, Reports arthralgias, Reports joint swelling and Reports numbness Neurologic Neurologic: Reports system reviewed and no additional complaints, except as documented, Reports as per HPI, Denies confusion, Denies disequilibrium, Denies headache(s) and Reports numbness Psychiatric Psychiatric: Denies confusion Past Medical History Past Medical History NEUROLOGIC: Negative Seizures CARDIAC: Negative Cardiac Disorders or Congestive Heart Failure RESPIRATORY: Negative Chronic Obstructive Pulmonary Disease (COPD) or Asthma GENITOURINARY: Negative Renal Disease REPRODUCTIVE: Negative Breast Cancer ENDOCRINE: Negative Diabetes Mellitus Type 1 or Diabetes Mellitus Type 2 HEMATOLOGIC: Negative Sickle Cell Disease OTHER HISTORY: Negative Autoimmune Disease, Blood Transfusions, Blood Transfusion Reaction, Anesthesia Reactions, Clostridium Difficile or Breast Cancer Surgical History SURGICAL: Positive Section Social History SMOKING STATUS: Never smoker ED Exam General Limitations: Present no limitations General appearance: Present alert and in no apparent distress Head Head exam: Present atraumatic Eye Eye exam: Present normal appearance, PERRL and EOMI ENT ENT exam: Present normal exam, normal oropharynx and mucous membranes moist Neck Neck exam: Present normal inspection, full ROM and trachea midline Chest Chest inspection: Present normal inspection and symmetric chest wall rise Respiratory Respiratory exam: Present normal lung sounds bilaterally Cardiovascular Cardiovascular exam: Present regular rate, normal rhythm and normal heart sounds Abdominal Exam Abdominal exam: Present soft and normal bowel sounds Extremities Exam Extremities exam: Present normal inspection and full ROM Back Exam Back exam: Present normal inspection and full ROM Neurological Exam Neurological exam: Present alert, oriented X3 and CN II-XII intact Psychiatric Psychiatric exam: Present normal affect and normal mood Skin Skin exam: Present warm, dry, intact and normal color Course Quality Measures none Orders Category Date Time Status EKG (ED ONLY) *Do not use* NOW Care 04/24/24 02:16 Completed EKG (ED Only) Stat Exams 04/24/24 02:16 Draft Vital Signs Vital signs: Vital Signs Temperature 98.2 F 04/24/24 02:56 Pulse Rate 65 04/24/24 02:56 Respiratory Rate 17 04/24/24 02:56 Blood Pressure 119/58 L 04/24/24 02:56 Pulse Oximetry (%) 98 04/24/24 02:56 Oxygen Delivery Method Room Air 04/24/24 02:56 O2 at 98% on RA and WNLs Extremity Problem MDM Narrative MDM Narrative:: 28F with no significant PMH presents to ED with 2 days of L shoulder pain that radiates down L arm w/o fall/trauma. There is also some L arm numbness that is relieved when she moves her arm/shoulder. Patient denies URI symptoms, SOB, and leg swelling. Physical exam reveals clear lungs. RRR. No L shoulder tenderness. ROM intact. Patient is afebrile, calm, and alert. EKG is NSR. Likely MSK-related such as thoracic outlet syndrome. Adult Literacy Instructor given. Patient data External records reviewed:: [facility] previous records Clinical information provided by:: patient Social determinants that could affect healthcare access:: none Patient has the following chronic illnesses:: none How is presenting disease/condition affected by chronic disease/condition?: no chronic disease Evaluation data The following diagnostics were reviewed and interpreted by me:: EKG tracing(s) Lab and/or radiology exams considered but not ordered:: ordered Interpretation Summary: above Medications / Prescriptions Medications or Prescriptions considered but not ordered:: not ordered Medication administrations:: n/a Consultations Consultation(s) initiated? (list below): No Diagnosis Extremity Problem Differential Diagnosis: herpes zoster, gout, cellulitis, superficial thrombophlebitis, deep venous thrombosis of upper extremity, lower extremity edema, deep vein thrombosis of lower extremity and other (ACS, PE, thoracic outlet syndrome) Most likely diagnosis given after review of the tests above:: thoracic outlet syndrome Admission Indicated Admission indicated?: not indicated Admission Request Was there a request for admission?: No Disposition Plan Disposition Plan: Discharge Discharge Attestation Discharge Attestation: The patient and all family members were given an opportunity to ask questions and understood the discharge instructions. Discharge instructions specifically effects, indications for sooner follow up or return to the emergency department, and the expected course of current diagnosis. Patient condition: Stable Discharge Plan Plan Patient Disposition: HOME (Self Care) Disposition Comment: Stable Prescriptions/Referrals Prescriptions/Med Rec: No Action Vitamin 27 mg iron- 800 mcg tablet 1 tab PO QDAY Patient Comments: TAKE 1 TABLET BY MOUTH EVERY DAY ibuprofen 600 mg tablet 600 mg PO Q6H PRN (Reason: pain) Qty: 30 0RF Problem List Clinical Impression: Thoracic outlet syndrome Patient/Caregiver Discharge Instructions Education Materials: Exercises at Your Workstation ..., Thoracic Outlet Syndrome Additional Instructions: Please follow-up with PCP within 24-48 hours and return immediately if symptoms worsen. If problem persists, recommend outpatient PT and/or MRI follow-up. In the meantime, rest, use ice/heat, and/or compression. Print Language: Citizen Of [place] Stand Alone Forms: Patient Portal Info Letter PA/TELEPHONIC NURSE Supervising Physician PA/TELEPHONIC NURSE Supervising Physician: Dr. Zhong
== END 2024-04-24 04:17 | disposition home or self-care (01) ==
LOC: SERX 03:30
PROVIDERS: Emergency Provider Emergency Medicine; PCP Nurse Practitioner Family
DX: G54.0 Brachial plexus disorders (principal)
CPT/HCPCS: 93005; 99283

== ENCOUNTER 2024-08-06 13:37 | Emergency (ER) | payer MEDICAID, SELFPAY ==
[2024-08-06 14:06] VITALS: BP 123/78; PULSE 75; RESP 16; TEMP 37; O2SAT 100
[2024-08-06 14:10] VITALS: BMI 31.4
--- NOTE | 2024-08-06 14:11 | XR_ITS ---
Examination: Duplex scan of the upper extremity, unilateral left Date and time of exam: August 06, 2024 1536 hrs. Indications: Left forearm produces swelling and pain today Technique: Duplex scan of the extremity veins using B-mode/grayscale imaging and Doppler spectral analysis and color flow Attention is directed to internal echogenicity, compression and augmentation involving these veins, color flow assessment, spectral analysis Findings: Major deep venous structures in the extremity demonstrate normal course and caliber. There is no evidence of deep vein thrombosis. Normal color flow and spectral analysis Impression: Negative for DVT..
--- NOTE | 2024-08-06 14:11 | PD.EDUPEX ---
Upper Extremity Injury RME/HPI General Chief Complaint: Extremity Injury, Upper Stated Complaint: LEFT ARM SWELLING / PAIN X 2 HOURS Time Seen by Provider: 08/06/24 13:50 Arrival date/time: 08/06/24 13:37 RME / HPI RME / HPI narrative: 28-year-old female patient with no significant past medical history, came in for evaluation regarding sudden onset of left arm pain and swelling started about 2 hours ago. Patient denies any fever denies any shortness of breath denies any palpitation denies any trauma to the arm. Patient also denies any travel long distance, denies any history of DVT denies any family history of DVT, denies any cancer, denies any taking hormonal replacement or contraceptives. Related Data Home Medications ?Medication ?Instructions ?Recorded ?Confirmed vits no.130-ferrous fum 1 tab PO QDAY 11/30/23 03/21/24 27 mg iron-folic acid 800 mcg tablet ( Vitamin) Previous Rx's ?Medication ?Instructions ?Recorded ibuprofen 600 mg tablet 600 mg PO Q6H PRN pain #30 tabs 03/23/24 ibuprofen 600 mg tablet 600 mg PO TID PRN pain #30 tabs 08/06/24 Allergies Allergy/AdvReac Type Severity Reaction Status Date / Time No Known Allergies Allergy Verified 08/06/24 13:41 Review of Systems Review of Systems Narrative Review of Systems: Review of system reviewed and within normal limits except mentioned in HPI ED Exam Narrative Physical exam: VITAL SIGNS: Reviewed. GENERAL APPEARANCE: Alert and interactive, follows commands, no acute distress, HEAD AND FACE: Non-traumatic. ENT: PERRL, pink conjunctivitis, eyelid no trauma, Mucous membrane moist. NECK: Supple, nontender, no nuchal rigidity. CHEST: No tenderness, no crepitus, no paradoxical movement, no retractions. LUNGS: Clear, well ventilated, symmetric, no rales, no wheezing, no ronchi, no stridor, good breath sounds bilaterally. HEART: Regular rate, regular rhythm, no murmur, no gallops. ABDOMEN: Soft, positive bowel sounds, nondistended, no guarding, nontender, no rebound, no masses, RECTAL: Deferred. GENITAL: Deferred. NEUROLOGICAL: Gross motor function intact sensory function intact, Appropriate for age. MUSCULOSKELETAL: low back nontender, full range of motion. EXTREMITIES: Left arm mild swelling, tenderness on the forearm, full range of motion. Radial and ulnar pulses +2 SKIN: Color pink, dry, no rash, no lacerations, no abrasions, no contusions. LYMPHATICS: Deferred. Course Quality Measures none Orders Category Date Time Status US venous doppler UE LT Stat Exams 08/06/24 14:11 Completed Vital Signs Vital signs: Vital Signs Temperature 98.6 F 08/06/24 14:06 Pulse Rate 75 08/06/24 14:06 Respiratory Rate 16 08/06/24 14:06 Blood Pressure 123/78 08/06/24 14:06 Pulse Oximetry (%) 100 08/06/24 14:06 Oxygen Delivery Method Room Air 08/06/24 14:06 Extremity Injury MDM Narrative MDM Narrative:: 28-year-old female patient with no significant past medical history, came in for evaluation regarding sudden onset of left arm pain and swelling started about 2 hours ago. Patient denies any fever denies any shortness of breath denies any palpitation denies any trauma to the arm. Patient also denies any travel long distance, denies any history of DVT denies any family history of DVT, denies any cancer, denies any taking hormonal replacement or contraceptives. Ultrasound of the upper extremities negative for DVT. Results discussed with the patient. Patient data External records reviewed:: None Clinical information provided by:: patient Social determinants that could affect healthcare access:: none Patient has the following chronic illnesses:: None How is presenting disease/condition affected by chronic disease/condition?: no chronic disease Evaluation data The following diagnostics were reviewed and interpreted by me:: radiology exam(s) Lab and/or radiology exams considered but not ordered:: None Interpretation Summary: Ultrasound of the forearm/upper extremities negative for DVT Medications / Prescriptions Medications or Prescriptions considered but not ordered:: None Medication administrations:: None Consultations Consultation(s) initiated? (list below): No Diagnosis Upper Extremity Injury Differential Diagnosis: other (Forearm pain, DVT forearm, forearm contusion) Most likely diagnosis given after review of the tests above:: Forearm pain Admission Indicated Admission indicated?: not indicated Explain why admission is indicated or not indicated:: Stable Admission Request Was there a request for admission?: No Disposition Plan Disposition Plan: Discharge Discharge Attestation Discharge Attestation: The patient and all family members were given an opportunity to ask questions and understood the discharge instructions. Discharge instructions specifically effects, indications for sooner follow up or return to the emergency department, and the expected course of current diagnosis. Patient condition: Stable Discharge Plan Plan Patient Disposition: HOME (Self Care) Discharge Disposition comment: Stable Prescriptions/Referrals Prescriptions/Med Rec: New ibuprofen 600 mg tablet 600 mg PO TID PRN (Reason: pain) Qty: 30 0RF No Action Vitamin 27 mg iron- 800 mcg tablet 1 tab PO QDAY Patient Comments: TAKE 1 TABLET BY MOUTH EVERY DAY ibuprofen 600 mg tablet 600 mg PO Q6H PRN (Reason: pain) Qty: 30 0RF Referrals: No Primary/Family,Physician [Primary Care Provider] - In 1 week Problem List Clinical Impression: Forearm pain Patient/Caregiver Discharge Instructions Discharge Activity: activity as tolerated Education Materials: Medicine for Pain Additional Instructions: Thank you for the opportunity for serving you today. You are stable for discharged . You are advised to: Follow-up with your PCP in 1 to 2 days Return to ED for worsening of symptoms Increase oral fluids Take medication as prescribed Print Language: [place] Stand Alone Forms: Kim Award Info., Patient Portal Info Letter
[2024-08-06 16:34] VITALS: BP 143/81; PULSE 71; RESP 18; TEMP 36.9; O2SAT 100
== END 2024-08-06 16:46 | disposition home or self-care (01) ==
PROVIDERS: Emergency Provider Emergency Medicine
DX: M79.632 Pain in left forearm (principal)
CPT/HCPCS: 93971; 99284